=== PATIENT | female | born 1985 | race Caucasian/White ===

== ENCOUNTER 2017-10-18 23:21 | Emergency (ER) | payer OTHER ==
[~2017-10-18] VITALS: Ht 160 cm; Wt 70.5 kg
[~2017-10-18 23:21] MED LIST: muscle relaxant PO; norco PO
[2017-10-19] MEDS ORDERED: IBUPROFEN 600 MG TABLET PO ONE (00:30)
[2017-10-19] MEDS ORDERED: HYDROCODONE/ACETAMINOPHEN 5-325 MG TABLET PO ONE (02:45)
[2017-10-19 04:23] VITALS: BP 129/68
== END 2017-10-19 05:21 | disposition home or self-care (01) ==
LOC: EMS 23:22
DX: S16.1XXA Strain of muscle, fascia and tendon at neck level, initial encounter (principal); S29.012A Strain of muscle and tendon of back wall of thorax, initial encounter; V49.40XA Driver injured in collision with unspecified motor vehicles in traffic accident, initial encounter; Y93.89 Activity, other specified; Y92.89 Other specified places as the place of occurrence of the external cause; Y99.8 Other external cause status
CPT/HCPCS: 70450; 72125; 99284